=== PATIENT | female | born 1975 | race Caucasian/White ===

== ENCOUNTER 2021-06-24 21:58 | Observation (INO) ==
[2021-06-24 23:50] LABS: Influenza A PCR Negative (Negative); Influenza B PCR Negative (Negative); Resp. Syncytial Virus PCR Negative (Negative)
[2021-06-24 23:55] LABS: SARS-CoV-2 by PCR (In House) Negative (Negative)
[2021-06-25 00:44] LABS: Basophils # 0.1 K/mcL (0.0-0.2); Basophils % 0.5 %; Eosinophils # 0.2 K/mcL (0.0-0.6); Eosinophils % 2.1 %; Hematocrit 45.9 % (35.3-44.9); Hemoglobin 15.1 g/dL (11.5-15.4); Immature Granulocytes % 0.3 % (0-4); Lymphocytes # 3.2 K/mcL (0.6-4.6); Lymphocytes % 32.8 %; Mean Corpuscular HGB Conc 32.9 g/dL (31.6-35.5); Mean Corpuscular Volume 94.3 fL (83.0-100.0); Mean Platelet Volume 9.7 fL (9.4-12.4); Monocytes # 0.5 K/mcL (0.0-1.3); Neutrophils # 5.8 K/mcL (1.6-8.9); Platelet Count 281 K/mcL (140-400); Red Blood Count 4.87 M/mcL (3.82-4.97); Red Cell Distribution Width 13.9 % (11.5-14.5); Segmented Neutrophils % 59.3 %; White Blood Count 9.8 K/mcL (4.3-11.1)
[2021-06-25 00:52] LABS: INR 0.9; Prothrombin Time 10.4 Seconds (9.4-12.1)
[2021-06-25 00:54] LABS: Activated Partial Thrombo Time 28.6 Seconds (26.0-36.0)
[2021-06-25 00:58] LABS: Alanine Aminotransferase 18 Units/L (7-52); Albumin 3.8 g/dL (3.5-5.7); Albumin/Globulin Ratio 1.3 (1.1-2.2); Alkaline Phosphatase 79 Units/L (34-104); Aspartate Amino Transferase 17 Units/L (13-39); BUN/Creatinine Ratio 11 (6-26); Bilirubin,Direct 0.1 mg/dL (0.0-0.2); Bilirubin,Indirect 0.4 mg/dL (0.0-1.0); Bilirubin,Total 0.5 mg/dL (0.3-1.0); Blood Urea Nitrogen 9 mg/dL (6-20); Calcium 9.1 mg/dL (8.6-10.3); Carbon Dioxide 27 mEq/L (23-29); Chloride 102 mEq/L (98-107); Glucose 101 mg/dL (70-105); Osmolality,Calculated 283 (280-300); Potassium 3.7 mEq/L (3.5-5.1); Sodium 137 mEq/L (136-145); Total Protein 6.8 g/dL (6.4-8.9); eGFR For African Americans > 60 (> 60); eGFR For Non-African Americans > 60 (> 60)
[2021-06-25 00:59] LABS: Troponin I < 0.03 ng/mL (< 0.04)
[2021-06-25] MEDS ORDERED: Isovue-370 500 ML BOTTLE IVP ONE (02:12)
[2021-06-25 03:00] LABS: Troponin I < 0.03 ng/mL (< 0.04)
[2021-06-25] MEDS ORDERED: Ondansetron 4 MG/2 ML VIAL IVP PRN (04:34)
[2021-06-25] MEDS ORDERED: Naloxone 0.4 MG/ML INJ IVP PRN (04:34)
[2021-06-25] MEDS ORDERED: Aspirin 325 MG TABLET PO ONE (04:35)
[2021-06-25] MEDS ORDERED: Perflutren Lipid Microsphere 1.3 ML in 0.9 % Sodium Chloride 8.7 ML IVP PRN (04:37)
[2021-06-25] MEDS ORDERED: Regadenoson 0.4 MG/5 ML SYRINGE IVP ONE (06:20)
[2021-06-25 06:40] LABS: Bilirubin,Urine Negative (Negative); Blood,Urine Negative (Negative); Clarity,Urine Clear (Clear); Color,Urine Light-Yellow (Yellow); Glucose,Urine (UA) Normal (Normal); Ketones,Urine Negative (Negative); Leukocyte Esterase,Urine Negative (Negative); Nitrite,Urine Negative (Negative); PH,Urine 6.5 pH Units (5.0-8.0); Protein,Urine Negative (Neg-Trace); Specific Gravity,Urine > 1.030 (1.010-1.025); Urobilinogen,Urine Normal (Normal)
[2021-06-25 06:58] LABS: Chol/HDL Ratio 3.5 (0-4.9); Cholesterol 127 mg/dL (< 200); HDL Cholesterol 36 mg/dL (40-59); LDL Cholesterol,Calculated 74 mg/dL (< 100); Magnesium 1.7 mg/dL (1.6-2.6); Triglycerides 84 mg/dL (< 150)
[2021-06-25 10:40] LABS: Estimated Average Glucose 146 mg/dl; Hemoglobin A1C 6.7 %
[2021-06-25] MEDS ORDERED: Dextrose Gel 15 GM/37.5 ML TUBE PO PRN ×2 (13:12)
[2021-06-25] MEDS ORDERED: D5% in Water 1,000 ML IVC PRN (13:12)
[2021-06-25] MEDS ORDERED: *HR* Dextrose 50 % in Water (Syg) 50 ML SYRINGE IVP PRN (13:12)
[2021-06-25] MEDS: Insulin LISPRO 300 UNITS/3 ML VIAL SUBQ SCH (16:33)
[2021-06-25] MEDS: Budesonide/Formoterol 160/4.5 1 PUFF INH IH SCH (19:59)
[2021-06-25] MEDS: levETIRAcetam 250 MG TABLET PO SCH (20:17)
[2021-06-25] MEDS ORDERED: Insulin LISPRO 300 UNITS/3 ML VIAL SUBQ SCH (21:00)
[2021-06-26 02:26] LABS: Basophils % 0.4 %; Eosinophils # 0.2 K/mcL (0.0-0.6); Eosinophils % 2.2 %; Hematocrit 42.6 % (35.3-44.9); Hemoglobin 13.8 g/dL (11.5-15.4); Immature Granulocytes % 0.4 % (0-4); Lymphocytes # 2.2 K/mcL (0.6-4.6); Lymphocytes % 30.9 %; Mean Corpuscular HGB Conc 32.4 g/dL (31.6-35.5); Mean Corpuscular Hemoglobin 30.7 pg (28.0-33.3); Mean Corpuscular Volume 94.7 fL (83.0-100.0); Monocytes # 0.4 K/mcL (0.0-1.3); Monocytes % 6.2 %; Neutrophils # 4.3 K/mcL (1.6-8.9); Platelet Count 218 K/mcL (140-400); Segmented Neutrophils % 59.9 %; White Blood Count 7.2 K/mcL (4.3-11.1)
[2021-06-26 02:48] LABS: BUN/Creatinine Ratio 15 (6-26); Blood Urea Nitrogen 12 mg/dL (6-20); Calcium 8.8 mg/dL (8.6-10.3); Carbon Dioxide 29 mEq/L (23-29); Chloride 105 mEq/L (98-107); Glucose 203 mg/dL (70-105); Osmolality,Calculated 296 (280-300); Potassium 3.8 mEq/L (3.5-5.1); Sodium 140 mEq/L (136-145); eGFR For African Americans > 60 (> 60); eGFR For Non-African Americans > 60 (> 60)
[2021-06-26] MEDS: Insulin LISPRO 300 UNITS/3 ML VIAL SUBQ SCH ×3 (07:05→16:11)
[2021-06-26] MEDS: Budesonide/Formoterol 160/4.5 1 PUFF INH IH SCH (07:52)
[2021-06-26] MEDS: levETIRAcetam 250 MG TABLET PO SCH (08:02)
[2021-06-26] MEDS ORDERED: Propranolol LA (24 HR) 60 MG CAP.SA.24H PO SCH (09:00)
[2021-06-26] MEDS ORDERED: lisinopriL 5 MG TABLET PO SCH (09:00)
[2021-06-26] MEDS ORDERED: Aspirin 81 MG TAB.CHEW PO SCH (13:15)
[2021-06-26 16:08] VITALS: BP 101/70; PULSE 87; TEMP 98.5; O2SAT 95
== END 2021-06-26 18:19 | disposition home or self-care (01) ==
LOC: 2ANU 21:58 → EMEROOARM 21:58 → SUATTDRO 06-25 04:59 → 2ANU 06-25 05:35
PROVIDERS: ADMIT Student in an Organized Health Care Education/Training Program; ATTEND Internal Medicine

== ENCOUNTER 2021-06-27 13:21 | Observation (INO) ==
[2021-06-27] MEDS ORDERED: Morphine Sulfate 2 MG/ML SYRINGE IVP ONE (13:44)
[2021-06-27 14:07] LABS: Basophils % 0.7 %; Red Cell Distribution Width 14.1 % (11.5-14.5)
[2021-06-27 14:09] LABS: Basophils # 0.1 K/mcL (0.0-0.2); Eosinophils # 0.2 K/mcL (0.0-0.6); Eosinophils % 2.2 %; Hematocrit 48.3 % (35.3-44.9); Hemoglobin 15.9 g/dL (11.5-15.4); Immature Granulocytes % 0.8 % (0-4); Immature Platelets 4.1 % (1.1-6.1); Lymphocytes # 1.9 K/mcL (0.6-4.6); Lymphocytes % 20.9 %; Mean Corpuscular HGB Conc 32.9 g/dL (31.6-35.5); Mean Corpuscular Hemoglobin 30.9 pg (28.0-33.3); Mean Corpuscular Volume 93.8 fL (83.0-100.0); Mean Platelet Volume 10.2 fL (9.4-12.4); Monocytes # 0.4 K/mcL (0.0-1.3); Monocytes % 4.7 %; Neutrophils # 6.5 K/mcL (1.6-8.9); Platelet Count 233 K/mcL (140-400); Red Blood Count 5.15 M/mcL (3.82-4.97); Segmented Neutrophils % 70.7 %; White Blood Count 9.2 K/mcL (4.3-11.1)
[2021-06-27 14:12] LABS: Prothrombin Time 10.9 Seconds (9.4-12.1)
[2021-06-27 14:15] LABS: Activated Partial Thrombo Time 24.3 Seconds (26.0-36.0)
[2021-06-27 14:29] LABS: BUN/Creatinine Ratio 20 (6-26); Blood Urea Nitrogen 14 mg/dL (6-20); Calcium 9.5 mg/dL (8.6-10.3); Carbon Dioxide 25 mEq/L (23-29); Chloride 107 mEq/L (98-107); Glucose 137 mg/dL (70-105); Osmolality,Calculated 293 (280-300); Potassium 4.2 mEq/L (3.5-5.1); Sodium 140 mEq/L (136-145); Troponin I < 0.03 ng/mL (< 0.04); eGFR For African Americans > 60 (> 60); eGFR For Non-African Americans > 60 (> 60)
[2021-06-27 14:34] LABS: Platelet Estimate Normal (Normal)
[2021-06-27] MEDS ORDERED: MOM Conc 10 ML UD.LIQ PO PRN (16:49)
[2021-06-27] MEDS ORDERED: Acetaminophen 325 MG TABLET PO PRN (16:49)
[2021-06-27] MEDS ORDERED: Naloxone 0.4 MG/ML INJ IVP PRN (16:49)
[2021-06-27] MEDS ORDERED: Melatonin 3 MG TABLET PO PRN (16:49)
[2021-06-27] MEDS ORDERED: Dextrose Gel 15 GM/37.5 ML TUBE PO PRN ×2 (16:49)
[2021-06-27] MEDS ORDERED: Mag Hydrox/Al Hydrox/Simeth 30 ML UDC PO PRN (16:49)
[2021-06-27] MEDS ORDERED: D5% in Water 1,000 ML IVC PRN (16:49)
[2021-06-27] MEDS ORDERED: Ondansetron 4 MG/2 ML VIAL IVP PRN (16:49)
[2021-06-27] MEDS ORDERED: *HR* Dextrose 50 % in Water (Syg) 50 ML SYRINGE IVP PRN (16:49)
[2021-06-27] MEDS ORDERED: NON-FORMULARY MEDICATION 1 EACH EACH (Albuterol Sulfate 18 GM Hfa.Aer.Ad) IH PRN (16:54)
[2021-06-27] MEDS ORDERED: *HR* Heparin 5,000 UNIT/ML VIAL IVP ONE (17:46)
[2021-06-27] MEDS ORDERED: *HR* Heparin 5,000 UNIT/ML VIAL IVP PRN ×2 (17:46)
[2021-06-27] MEDS ORDERED: Heparin 25,000UNIT/250ML 1/2NS 25,000 UNIT/250 ML IV.SOLN IVC SCH (18:00)
[2021-06-27 18:54] LABS: Hematocrit 46.3 % (35.3-44.9); Hemoglobin 14.9 g/dL (11.5-15.4); Mean Corpuscular HGB Conc 32.2 g/dL (31.6-35.5); Mean Corpuscular Hemoglobin 30.7 pg (28.0-33.3); Mean Corpuscular Volume 95.3 fL (83.0-100.0); Platelet Count 264 K/mcL (140-400); Red Blood Count 4.86 M/mcL (3.82-4.97); Red Cell Distribution Width 14.2 % (11.5-14.5); White Blood Count 10.6 K/mcL (4.3-11.1)
[2021-06-27] MEDS: Budesonide/Formoterol 160/4.5 1 PUFF INH IH SCH (20:46)
[2021-06-27] MEDS: Insulin LISPRO 300 UNITS/3 ML VIAL SUBQ SCH (21:52)
[2021-06-27] MEDS: levETIRAcetam 250 MG TABLET PO SCH (22:23)
[2021-06-27] MEDS: Insulin DETEMIR 100 UNIT/ML X5UNITS SUBQ SCH (22:23)
[2021-06-28 04:28] LABS: Hematocrit 44.2 % (35.3-44.9); Hemoglobin 14.3 g/dL (11.5-15.4); Mean Corpuscular HGB Conc 32.4 g/dL (31.6-35.5); Mean Corpuscular Hemoglobin 30.6 pg (28.0-33.3); Mean Corpuscular Volume 94.4 fL (83.0-100.0); Mean Platelet Volume 9.9 fL (9.4-12.4); Platelet Count 240 K/mcL (140-400); Red Blood Count 4.68 M/mcL (3.82-4.97); Red Cell Distribution Width 14.2 % (11.5-14.5)
[2021-06-28 04:48] LABS: BUN/Creatinine Ratio 19 (6-26); Blood Urea Nitrogen 14 mg/dL (6-20); Calcium 8.7 mg/dL (8.6-10.3); Carbon Dioxide 25 mEq/L (23-29); Chloride 106 mEq/L (98-107); Glucose 69 mg/dL (70-105); Magnesium 1.7 mg/dL (1.6-2.6); Osmolality,Calculated 285 (280-300); Potassium 4.2 mEq/L (3.5-5.1); Sodium 138 mEq/L (136-145); eGFR For African Americans > 60 (> 60); eGFR For Non-African Americans > 60 (> 60)
[2021-06-28] MEDS ORDERED: *HR* Enoxaparin 40 MG/0.4 ML SYRINGE SQ SCH (07:00)
[2021-06-28] MEDS: Propranolol LA (24 HR) 60 MG CAP.SA.24H PO SCH (07:51)
[2021-06-28] MEDS: levETIRAcetam 250 MG TABLET PO SCH ×2 (07:51→20:36)
[2021-06-28] MEDS: lisinopriL 5 MG TABLET PO SCH (07:51)
[2021-06-28] MEDS: Aspirin 81 MG TAB.CHEW PO SCH (07:51)
[2021-06-28] MEDS: Insulin LISPRO 300 UNITS/3 ML VIAL SUBQ SCH ×4 (08:36→23:55)
[2021-06-28] MEDS: Latanoprost 2.5 ML BOTTLE BOTH EYES SCH (08:44)
[2021-06-28] MEDS: Budesonide/Formoterol 160/4.5 1 PUFF INH IH SCH ×2 (09:25→20:29)
[2021-06-28] MEDS: *HR* Heparin 5,000 UNIT/ML VIAL SQ SCH (18:05)
[2021-06-28] MEDS: Insulin DETEMIR 100 UNIT/ML X5UNITS SUBQ SCH (23:55)
[2021-06-29] MEDS: *HR* Heparin 5,000 UNIT/ML VIAL SQ SCH (05:29)
[2021-06-29] MEDS: Budesonide/Formoterol 160/4.5 1 PUFF INH IH SCH (08:18)
[2021-06-29] MEDS ORDERED: Nitroglycerin 1,000 MCG/5 ML VIAL IV ONE (09:04)
[2021-06-29] MEDS ORDERED: 0.9 % Sodium Chloride 2,000 ML ONE (09:04)
[2021-06-29] MEDS ORDERED: Heparin 1,000 UNITS/500 mL 500 ML ONE (09:04)
[2021-06-29] MEDS ORDERED: ISOVUE-370 200 ML INFUS..BTL ONE (09:04)
[2021-06-29] MEDS ORDERED: *HR* Heparin 10,000 UNIT/10 ML VIAL ONE (09:04)
[2021-06-29] MEDS ORDERED: *HR* FentaNYL (PF) 100 MCG/2 ML VIAL ONE (09:10)
[2021-06-29] MEDS ORDERED: *HR* Midazolam HCl 2 MG/2 ML VIAL ONE (09:10)
[2021-06-29] MEDS: Insulin LISPRO 300 UNITS/3 ML VIAL SUBQ SCH ×2 (09:29→12:54)
[2021-06-29] MEDS: Propranolol LA (24 HR) 60 MG CAP.SA.24H PO SCH (10:44)
[2021-06-29] MEDS: levETIRAcetam 250 MG TABLET PO SCH (10:44)
[2021-06-29] MEDS: Aspirin 81 MG TAB.CHEW PO SCH (10:44)
[2021-06-29] MEDS: lisinopriL 5 MG TABLET PO SCH (10:44)
[2021-06-29] MEDS: Latanoprost 2.5 ML BOTTLE BOTH EYES SCH (10:51)
[2021-06-29] MEDS ORDERED: SUMAtriptan succinate 25 MG TABLET PO PRN (13:52)
[2021-06-29 16:11] VITALS: BP 127/82; PULSE 71; TEMP 98.1; O2SAT 94
[2021-06-29] MEDS ORDERED: Latanoprost 2.5 ML BOTTLE BOTH EYES SCH (21:00)
== END 2021-06-29 18:07 | disposition home or self-care (01) ==
LOC: EMEROOARM 13:21 → 3ANU 13:21
PROVIDERS: ADMIT General Practice; ATTEND General Practice